=== PATIENT | female | born 1980 | race Caucasian/White ===

== ENCOUNTER 2020-07-11 16:35 | Outpatient (REF) | payer OTHER, SELFPAY ==
[2020-07-11 18:10] LABS: Glucose Urine UA 100 MG/DL (NEG); Leukocyte Esterase Urine NEG (NEG); Nitrite Urine POS (NEG); Specific Gravity - Urine 1.015 (1.005-1.025); Urine Blood NEG (NEG); Urine Ketones NEG (NEG); Urine Protein NEG (NEG-TRACE)
[2020-07-11 18:11] LABS: Appearance Urine CLEAR; Color Urine YELLOW
[2020-07-11 18:17] LABS: Bacteria Urine 1+ /LPF; RBC Urine 0 /HPF (0); Squamous Epithelial Cell Urine 1+ /LPF; WBC Urine 0 /HPF (0-4)
== END 2020-07-11 16:36 | disposition home or self-care (01) ==
LOC: HO.LAB 16:35
PROVIDERS: Visit Provider Urology
DX: N20.0 Calculus of kidney (principal)
CPT/HCPCS: 81001; 87086

== ENCOUNTER 2020-07-16 15:35 | Outpatient (REF) | payer OTHER, SELFPAY ==
--- NOTE | 2020-07-16 | US_ITS ---
EXAMINATION: US RETROPERITONEAL LIMITED (RENAL ONLY) CLINICAL INFORMATION: Renal stones. COMPARISON: Previous renal ultrasound most recent September [address] of the abdomen and pelvis March 2019 TECHNIQUE: Grayscale and color imaging of the kidneys FINDINGS: RIGHT KIDNEY: 12.1 x 4.4 x 4.3 cm (SAG x AP x TRV). The kidney is normal in size, contour, and echogenicity. Renal cortical thickness is normal. There are echogenic renal pyramids questionable for medullary nephrocalcinosis. A discrete stone is not seen. No renal mass or hydronephrosis. LEFT KIDNEY: 11 x 5.2 x 5.3 cm (SAG x AP x TRV). The kidney is normal in size, contour, and echogenicity. Renal cortical thickness is normal. There are echogenic renal pyramids questionable for medullary nephrocalcinosis. A discrete stone is non-seen. . There is a 8 mm cyst in the midpole. No renal mass or hydronephrosis. IMPRESSION: Echogenic pyramids questionable for medullary nephrocalcinosis. No discrete stone. No hydronephrosis. Small left renal cyst.
== END 2020-07-16 15:36 | disposition home or self-care (01) ==
LOC: HO.HMGCX 15:35
PROVIDERS: Visit Provider Urology
DX: N20.0 Calculus of kidney (principal)
CPT/HCPCS: 76775

== ENCOUNTER → 2020-08-14 11:38 | Outpatient (BNVA) | payer OTHER, SELFPAY | PROVIDERS: Visit Provider Urology | DX: N23 Unspecified renal colic (principal) | CPT/HCPCS: 81002; 99202 ==